=== PATIENT | male | born 1985 | race Two or more races ===

== ENCOUNTER 2021-01-18 16:06 | Emergency (ER) | payer SELFPAY ==
[~2021-01-18] VITALS: Ht 175.3 cm; Wt 96.1 kg
--- NOTE | 2021-01-18 17:21 | NUR ---
TAX SPECIALIST: PT AMBULATORY TO ROOM FROM LOBBY WITH STEADY GAIT WITH DIVER ASSISTANT
[2021-01-18] MEDS ORDERED: DIPHENHYDRAMINE 25 MG CAPSULE ONE (18:27)
[2021-01-18] MEDS ORDERED: FAMOTIDINE 20 MG TABLET ONE (18:27)
[2021-01-18] MEDS ORDERED: DEXAMETHASONE 4 MG/ML, 1ML ONE (18:27)
[2021-01-18] MEDS ORDERED: FAMOTIDINE 20 MG TABLET PO/NG ONE (18:30)
[2021-01-18] MEDS ORDERED: DIPHENHYDRAMINE 25 MG CAPSULE PO ONE (18:30)
[2021-01-18] MEDS ORDERED: DEXAMETHASONE 4 MG/ML, 1ML IM ONE (18:30)
[2021-01-18 18:53] VITALS: BP 124/75
--- NOTE | 2021-01-18 19:17 | NUR ---
Patient/Caregiver given discharge instructions and they have confirmed that they understand the instructions. Patient ambulatory with steady gait. NAD, all questions answered appropriately, denies additional needs at this time. No personal belongings left in room after discharge.
== END 2021-01-18 19:17 | disposition home or self-care (01) ==
LOC: ED 19:11
DX: T78.49XA Other allergy, initial encounter (principal); R21 Rash and other nonspecific skin eruption; X58.XXXA Exposure to other specified factors, initial encounter
CPT/HCPCS: 96372; 99283; J1100; Q0163